=== PATIENT | male | born 1980 | race Caucasian/White ===

== ENCOUNTER 2017-04-10 17:13 | Emergency (ER) | payer BC ==
--- NOTE | 2017-04-10 17:18 | PDOC ---
History of Present Illness - General Chief Complaint: Rash Stated Complaint: RASH Time Seen by Provider: 04/10/17 17:15 - History of Present Illness Initial Comments: 04/11/17 16:37 36yo male presents ambulatory from home for eval of a rash on his face x 4 days. States it started as a "cold sore" on his L lower lip and then he shaved and the rash has spread across his richardson and chin. States he had lymphadenopathy under his jaw (which has since resolved) for the first 2 days and has had fevers at night for the last 2 days. No cp/sob/cough. No thomas. States sore on his tongue and inside the lower part of his nose. States he picked at the sores and now they are crusting and red. Hx of UC, on meds, well controlled. No blood in stool and no diarrhea. No thomas. No sore throat. + rhinorrhea. No abd pain. No n/v/d. No rash anywhere else. Pt denies all other complaints. States he was in [place] staying at a hotel when the rash started. 04/11/17 16:40 PMHx: UC Pshx: colonoscopy Meds: Mesalamine Allergies: NKDA Smoking: denies Etoh: social Drugs: no Past History - Past Medical History Allergies/Adverse Reactions: Allergies Allergy/AdvReac Type Severity Reaction Status Date / Time No Known Allergies Allergy Verified 04/10/17 17:18 Home Medications: Ambulatory Orders Clindamycin [Cleocin -] 450 mg PO Q8H #90 capsule 04/10/17 Valacyclovir HCl [Valtrex -] 1,000 mg PO BID #20 tablet 04/10/17 Review of Systems - Review of Systems Able to Perform ROS?: Yes Is the patient limited Citizen Of [place] proficient: No Constitutional: Yes: Chills, Fever HEENTM: Yes: Nose Pain, Nose Congestion, Mouth Pain. No: Eye Pain, Blurred Vision, Throat Pain Respiratory: No: Cough, Shortness of Breath, SOB with Exertion, Wheezing Cardiac (ROS): No: Chest Pain, Edema, Irregular Heart Rate ABD/GI: No: Abdominal Distended, Blood Streaked Bowels, Constipated, Diarrhea, Nausea, Vomiting : No: Burning, Dysuria Musculoskeletal: No: Back Pain, Neck Pain Integumentary: Yes: Lesions, Rash Neurological: No: Headache, Numbness, Paresthesia, Weakness All Other Systems: Reviewed and Negative *Physical Exam - Vital Signs 04/11/17 16:42 Selected Entries 04/10/17 17:15 Temperature 98.0 F Pulse Rate 78 Respiratory 20 Rate Blood Pressure 138/90 Blood Pressure 106 Mean O2 Sat by Pulse 99 Oximetry (%) Weight 74.843 kg - Physical Exam Comments: 04/11/17 16:42 Gen: aaox3, nad Heent: PERRL, EOMI, MMM, ulcer on tip of tongue on L side, ulcer inside R nare - no active bleeding, post pharynx clear, uvula midline, no submandibular LAD Neck: supple Heart: +s1s2 reg Lungs: cta b/l Abd: soft, nt/nd +bs Ext: no c/c/e Neuro: cn II-xii grossly intact, no focal deficits Skin: 10 lesions to chin, honey combed crusting to lower lip lesions, lesions throughout richardson, raised red borders, mild vesicles to smaller lesions, no drainage ED Treatment Course - LABORATORY CBC & Chemistry Diagram: 04/10/17 17:20 04/10/17 17:20 Medical Decision Making - Medical Decision Making 04/11/17 16:45 a/p: 36yo male with rash x 4 days -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 *DC/Admit/Observation/Transfer Diagnosis at time of Disposition: Rash - Discharge Dispostion Disposition: HOME Condition at time of disposition: Stable Admit: No - Prescriptions Prescriptions: Clindamycin [Cleocin -] 450 mg PO Q8H #90 capsule Valacyclovir HCl [Valtrex -] 1,000 mg PO BID #20 tablet - Referrals Referrals: Nicolette Latif DO [Emergency Provider] - - Patient Instructions Additional Instructions: call me for instructions - Post Discharge Activity - Attestations Physician Attestion: 04/10/17 18:02 I, Dr. Nicolette Latif DO, attest that this document has been prepared under my direction and personally reviewed by me in its entirety. I further attest, that it accurately reflects all work, treatment, procedures and medical decision -making performed by me.
[2017-04-10 17:19] VITALS: BP 138/90; PULSE 78; TEMP 98; BMI 25.0
--- NOTE | 2017-04-10 17:19 | PDOC ---
Rapid Medical Evaluation Chief Complaint: Rash Time Seen by Provider: 04/10/17 17:15 Medical Evaluation: 04/10/17 17:16 I have performed a brief in-person evaluation of this patient. The patient presents with a chief complaint of:Facial rash w/ subj fever x 5 days Pertinent physical exam findings: erythematous papules and pustules to perioral area w/ 1 ulcer to tip of tongue c/f ? impetigo I have ordered the following:nothing The patient will proceed to the ED for further evaluation.
[2017-04-10 17:46] LABS: BASOPHIL 0.5 % (0-2.0); EOSINOPHIL 2.8 % (0-4.5); MCH 32.7 pg (25.7-33.7); MCHC 34.1 g/dl (32.0-35.9); MEAN CELL VOLUME 95.8 fl (80-96); MEAN PLT VOLUME 9.8 fl (7.5-11.1); NEUTROPHILS 60.4 % (42.8-82.8); PLATELET COUNT 186 K/MM3 (134-434); RDW 12.7 % (11.9-15.9); WHITE BLOOD COUNT 7.5 K/mm3 (4.0-10.0)
[2017-04-10] MEDS ORDERED: CLINDAMYCIN HCL 150 MG CAPSULE (FP) ONE (17:48)
[2017-04-10] MEDS ORDERED: CLINDAMYCIN HCL 150 MG CAPSULE (FP) PO ONE (17:51)
[2017-04-10] MEDS ORDERED: valACYclovir HCL 1000 MG TABLET PO ONE (17:51)
[2017-04-10 18:10] LABS: ALK PHOS 66 U/L (45-117); ANION GAP 6 (8-16); BILIRUBIN,TOTAL 0.6 mg/dL (0.2-1.0); CALCIUM 8.5 mg/dL (8.5-10.1); CO2 29 mmol/L (21-32); GLUCOSE,RANDOM 110 mg/dL (74-106); SGOT/AST 13 U/L (15-37); SGPT/ALT 19 U/L (12-78); TOT PROT 7.4 g/dl (6.4-8.2)
[2017-04-13 00:06] LABS: HSV 2 DNA. Negative (Negative)
--- NOTE | 2017-04-13 07:25 | PDOC ---
Patient Follow-up (Call Back) - Post ED Follow - Up Condition at time of discharge: Stable Disposition at time of original discharge: HOME Reason for Call Back: Abnwl. Microbiology (Preliminary wound culture shows presumptive MSSA. Patient was prescribed clindamycin and Valtrex which is adequate coverage for the above preliminary. Will await final report.)
== END 2017-04-10 18:25 | disposition home or self-care (01) ==
LOC: JER 17:13
DX: R21 Rash and other nonspecific skin eruption (principal)
CPT/HCPCS: 36415; 80053; 83735; 85025; 86308; 87070; 87186; 87205; 87529; 99281-25